=== PATIENT | female | born 1995 | race Caucasian/White ===

== ENCOUNTER 2018-11-03 18:28 | Emergency (ER) | payer OTHER ==
[~2018-11-03] VITALS: Ht 165.1 cm; Wt 114.9 kg
[2018-11-03 18:43] VITALS: BP 111/48
--- NOTE | 2018-11-03 19:56 | NUR ---
PT AMBULATED TO BED 11.
--- NOTE | 2018-11-03 20:05 | NUR ---
23/F PRESENTED TO ED. A/OX4 PERSON PL[address] TIME AND EVENT. WITH C/O INCREASED HEART RATE SINCE 1400 11/03/18. PT REPORTS USING AMY ON PHONE AND NOTING HEART RATE OF 120'S, STATES FEELING "FLUTTERY". CURRENT VITALS STABLE. STATES INTERMITENT SHARP L SIDE CP. NONRADIATING. STATES NAUSEA, HEADACHE. 17 WEEKS , LMP 07/13/18, , ARTUR 04/15/19. DENIES CURRENT DRUG USE. STATES SHE USED [facility] BEFORE . STATES DOES NOT DRINK ENERGY DRINKS AND DRINKS COFFEE ON OCCASION. STATES THAT SHE HAD THIS PROBLEM WHEN SHE WAS YOUNGER. AND BELIEVES SHE HAS ANXIETY BUT IS NOT DIAGNOSED. MED HX ASTHMA. RX ALBUTEROL, VITAMINS. WILL CONTINUE TO MONITOR.
[2018-11-03 22:00] VITALS: BP 113/52
--- NOTE | 2018-11-03 22:00 | NUR ---
Patient discharged with v/s stable. Written and verbal after care instructions given and explained. Patient alert, oriented and verbalized understanding of instructions. Ambulatory with steady gait. All questions addressed prior to discharge. ID band removed. Patient advised to follow up with PMD. Opportunity to ask questions provided and answered.
== END 2018-11-03 22:00 | disposition home or self-care (01) ==
LOC: MED 18:28
DX: O26.892 Other specified pregnancy related conditions, second trimester (principal); O21.8 Other vomiting complicating pregnancy; R00.2 Palpitations; J45.909 Unspecified asthma, uncomplicated; Z3A.17 17 weeks gestation of pregnancy
CPT/HCPCS: 81002; 93005; 99283

== ENCOUNTER 2019-01-14 02:14 | Emergency (ER) | payer OTHER ==
[~2019-01-14] VITALS: Ht 165.1 cm; Wt 122.0 kg
[2019-01-14 02:23] VITALS: BP 125/67
--- NOTE | 2019-01-14 02:26 | NUR ---
23 F C/O BILATERAL EAR PAIN X 3 DAYS. SEEN @ [facility]RGENT [facility]ARE GIVEN RX EAR DROPS. 12/07 EAR PAIN, THROBBING. PT TOOK TYLENOL XL 1 HOUR AGO. PATIENT STATES, " I FEEL LIKE IT STARTS IN MY RIGHT EAR AND THEN MY LEFT EAR FEELS THE PAIN, TOO. IT HURTS MY HEAD; IT FEELS LIKE PRESSURE, AND AFFECTS MY JAW THAT. I KIND OF FEEL DIZZY WHEN I STAND AT TIMES". SLIGHT PAIN NOTED AND FACIAL GRIMACING NOTED WHEN PALPATED THE RIGHT EAR TRAGUS AND RIGHT SIDE OF JAW. DENIES VOMITING/DIARRHEA, BUT HAS NAUSEA. ERMD MADE AWARE. SIDE [id number]. AT BEDSIDE. HX: ASTHMA RX: INHALER, TYLENOL OTC AX: NKA
[2019-01-14] MEDS ORDERED: KETOROLAC 60 MG/2 ML VIAL IM ONE (03:50)
[2019-01-14 04:48] VITALS: BP 125/67
--- NOTE | 2019-01-14 04:48 | NUR ---
Patient discharged with v/s stable. Written and verbal after care instructions given and explained. Patient alert, oriented and verbalized understanding of instructions. Ambulatory with steady gait. All questions addressed prior to discharge. ID band removed. Patient advised to follow up with PMD. Rx of MOTRIN; ACETIC ACID given. Patient educated on indication of medication including possible reaction and side effects. Opportunity to ask questions provided and answered.
== END 2019-01-14 04:48 | disposition home or self-care (01) ==
LOC: MED 02:14
DX: O26.893 Other specified pregnancy related conditions, third trimester (principal); H60.93 Unspecified otitis externa, bilateral; O16.3 Unspecified maternal hypertension, third trimester; O99.513 Diseases of the respiratory system complicating pregnancy, third trimester; J45.909 Unspecified asthma, uncomplicated
CPT/HCPCS: 81002; 96372; 99283; J1885

== ENCOUNTER 2019-04-07 22:11 | Inpatient (IN) | payer OTHER ==
[~2019-04-07] VITALS: Ht 165.1 cm; Wt 127.0 kg
[2019-04-07] MEDS: LACTATED RINGERS 1,000 ML IV SCH (00:57)
[2019-04-07] MEDS ORDERED: LACTATED RINGERS 500 ML IV ONE (23:10)
[2019-04-07] MEDS ORDERED: PROMETHAZINE 25 MG/ML VIAL IVP PRN (23:10)
[2019-04-07] MEDS ORDERED: NALBUPHINE 10 MG/ML AMP IVP PRN (23:10)
[2019-04-08] MEDS ORDERED: AMPICILLIN 2,000 MG in NACL 0.9% MINI-BAG PLUS 100 ML IV SCH ×2
[2019-04-08 00:07] LABS: BASOPHILS # (AUTO) 0.1 K/uL (0.00-0.22); BASOPHILS % (AUTO) 0.4 % (0.0-2.0); EOSINOPHILS # (AUTO) 0.1 K/uL (0-0.4); EOSINOPHILS % (AUTO) 0.5 % (0.0-4.0); HEMATOCRIT 33.1 % (36-48); HEMOGLOBIN 10.7 g/dL (12.0-16.0); LYMPHOCYTES # (AUTO) 1.9 K/uL (2.5-16.5); LYMPHOCYTES % (AUTO) 16.4 % (20.5-51.1); MEAN CORPUSCULAR HEMOGLOBIN 26 pg (27-31); MEAN CORPUSCULAR HGB CONC 32 g/dL (33-37); MEAN CORPUSCULAR VOLUME 81.1 fL (80-94); MONOCYTES # (AUTO) 0.8 K/uL (0.8-1.0); MONOCYTES % (AUTO) 6.8 % (1.7-9.3); NEUTROPHILS # (AUTO) 8.7 K/uL (1.8-7.7); NEUTROPHILS % (AUTO) 75.9 % (42.2-75.2); PLATELET COUNT (AUTO) 276 K/uL (140-450); RED BLOOD CELL COUNT(AUTO) 4.09 MIL/uL (4.20-5.40); WHITE BLOOD COUNT (AUTO) 11.5 K/uL (4.8-10.8)
[2019-04-08 00:11] LABS: APPEARANCE,URINE CLOUDY (CLEAR); BILIRUBIN,URINE NEGATIVE (NEGATIVE); BLOOD, URINE NEGATIVE (NEGATIVE); COLOR,URINE DARK YELLOW (YELLOW); LEUKOCYTE ESTERASE ,URINE NEGATIVE (NEGATIVE); NITRITE, URINE NEGATIVE (NEGATIVE); UGLUCOSE NEGATIVE (NEGATIVE)
[2019-04-08] MEDS ORDERED: AMPICILLIN 2,000 MG VIAL ONE (01:06)
[2019-04-08] MEDS: MISOPROSTOL 25 MCG TAB VG PRN ×3 (01:38→13:13)
[2019-04-08] MEDS ORDERED: PREN-380 PO (01:53)
[2019-04-08] MEDS ORDERED: albuterol inhaler (01:53)
[2019-04-08 02:03] VITALS: BP 115/57
[2019-04-08 03:17] LABS: BARBITURATE, URINE NEG. ng/ml (NEG <=200); BENZODIAZEPINE, URINE NEG. ng/mL (NEG <=200); CANNABINOID, URINE NEG. ng/mL (NEG <=50); COCAINE, URINE NEG. ng/mL (NEG <=300); OPIATE, URINE NEG. ng/mL (NEG <=2000); PHENCYCLIDINE SCREEN,URINE NEG. ng/mL (NEG <=25)
[2019-04-08] MEDS: LACTATED RINGERS 1,000 ML IV SCH ×3 (04:40→19:59)
[2019-04-08] MEDS ORDERED: AMPICILLIN 1,000 MG VIAL ONE ×5 (05:11→20:46)
[2019-04-08] MEDS: AMPICILLIN 1,000 MG in NACL 0.9% MINI-BAG PLUS 50 ML IV SCH ×5 (05:22→20:54)
--- NOTE | 2019-04-08 08:36 | NUR ---
PATIENT HAS BEEN SCREENED AND CATEGORIZED LOW NUTRITION RISK. PATIENT WILL BE SEEN WITHIN 7 DAYS OF ADMISSION. 04/14/19 RAVI LUA MBA,RD
[2019-04-08] MEDS ORDERED: guaiFENesin 20 MG/ML UDC PO PRN (11:00)
[2019-04-08] MEDS: ALBUTEROL 0.083% 2.5 MG/3 ML NEBU INH PRN (12:13)
[2019-04-08] MEDS ORDERED: ALBUTEROL 0.083% 2.5 MG/3 ML NEBU INH SCH (15:00)
[2019-04-08] MEDS ORDERED: EPIDURAL KEYS MC ONE (19:52)
--- NOTE | 2019-04-08 20:50 | NUR ---
2018 BREATH SOUNDS ARE CLEAR. SATS 95%. NO SOB NOTED. NO HHNTX NEEDED
[2019-04-08] MEDS ORDERED: OXYTOCIN 20 UNITS/LR PREMIX 1,000 ML IV ONE (21:39)
[2019-04-09] MEDS: LACTATED RINGERS 1,000 ML IV SCH ×3 (00:10→20:05)
[2019-04-09] MEDS ORDERED: AMPICILLIN 1,000 MG VIAL ONE ×6 (00:45→21:48)
[2019-04-09] MEDS: AMPICILLIN 1,000 MG in NACL 0.9% MINI-BAG PLUS 50 ML IV SCH ×5 (01:00→16:57)
[2019-04-09] MEDS ORDERED: ONDANSETRON 8 MG in NACL 0.9% 50 ML IM/IVP PRN (12:05)
[2019-04-09] MEDS ORDERED: ONDANSETRON 4 MG/2 ML VIAL ONE (12:08)
[2019-04-09] MEDS ORDERED: ROPIVACAINE 0.2%/NS PREMIX 200 ML EPI ONE (19:22)
[2019-04-09] MEDS: ALBUTEROL 0.083% 2.5 MG/3 ML NEBU INH PRN (23:04)
[2019-04-10] MEDS ORDERED: AMPICILLIN 1,000 MG VIAL ONE ×4 (01:06→12:55)
[2019-04-10] MEDS ORDERED: OXYTOCIN 20 UNITS/LR PREMIX 1,000 ML IV ONE (03:33)
[2019-04-10] MEDS ORDERED: ROPIVACAINE 0.2%/NS PREMIX 200 ML EPI ONE ×2 (10:52→17:23)
--- NOTE | 2019-04-10 20:56 | NUR ---
PATIENT IS CURRENTLY IN LABOR AT THIS TIME. PER FAMILY PATIENT IS ALSO VOMITING AND DOES NOT WANT BREATHING TREATMENT. WILL CONTINUE TO MONITOR.
[2019-04-10] MEDS ORDERED: METHYLERGONOVINE 0.2 MG TAB PO ONE (21:54)
[2019-04-10] MEDS ORDERED: MISOPROSTOL 200 MCG TAB ONE (21:57)
[2019-04-10] MEDS ORDERED: METHYLERGONOVINE 0.2 MG/ML AMP ONE (21:58)
[2019-04-10] MEDS ORDERED: MISOPROSTOL 100 MCG TAB VG ONE (22:25)
[2019-04-10 22:49] LABS: HEMATOCRIT 30.6 % (36-48); HEMOGLOBIN 9.8 g/dL (12.0-16.0); MEAN CORPUSCULAR HEMOGLOBIN 26 pg (27-31); MEAN CORPUSCULAR HGB CONC 32 g/dL (33-37); MEAN CORPUSCULAR VOLUME 81.7 fL (80-94); PLATELET COUNT (AUTO) 276 K/uL (140-450); RED BLOOD CELL COUNT(AUTO) 3.74 MIL/uL (4.20-5.40); RED CELL DISTRIBUTION WIDTH 15.7 % (11.6-13.7)
[2019-04-10] MEDS ORDERED: SODIUM BICARBONATE 8.4% PFS 50 MEQ/50 ML SYR IVP ONE (23:02)
[2019-04-10] MEDS ORDERED: LIDOCAINE/EPI MPF 2%1:200000 10 ML VIAL INJ ONE (23:02)
[2019-04-10 23:08] LABS: WHITE BLOOD COUNT (AUTO) 28.8 K/uL (4.8-10.8)
[2019-04-10 23:09] LABS: LYMPHOCYTES % (MANUAL) 1 % (20-46); MONOCYTES % (MANUAL) 6 % (5-12)
[2019-04-10 23:13] LABS: PROTHROMBIN TIME 9.7 secs (10.8-13.4)
[2019-04-10] MEDS ORDERED: ONDANSETRON 4 MG/2 ML VIAL IVP PRN (23:15)
[2019-04-11] MEDS: OXYTOCIN 20 UNITS/LR PREMIX 1,000 ML IV ONE ×2 (00:42→01:00)
[2019-04-11] MEDS ORDERED: IBUPROFEN 600 MG TAB ONE (01:57)
[2019-04-11] MEDS ORDERED: IBUPROFEN 600 MG TAB PO PRN (02:00)
[2019-04-11 06:05] LABS: HEMATOCRIT 27.6 % (36-48); MEAN CORPUSCULAR HEMOGLOBIN 27 pg (27-31); MEAN CORPUSCULAR HGB CONC 33 g/dL (33-37); MEAN CORPUSCULAR VOLUME 81.7 fL (80-94); PLATELET COUNT (AUTO) 209 K/uL (140-450); RED BLOOD CELL COUNT(AUTO) 3.37 MIL/uL (4.20-5.40); RED CELL DISTRIBUTION WIDTH 15.5 % (11.6-13.7)
[2019-04-11 06:52] LABS: WHITE BLOOD COUNT (AUTO) 24.8 K/uL (4.8-10.8)
[2019-04-11 07:00] LABS: LYMPHOCYTES % (MANUAL) 4 % (20-46); MONOCYTES % (MANUAL) 1 % (5-12)
[2019-04-11] MEDS ORDERED: NACL 0.9% 1,000 ML IV SCH (07:45)
[2019-04-11] MEDS ORDERED: GENTAMICIN PER PHARMACY MC PRN (07:50)
[2019-04-11] MEDS ORDERED: GENTAMICIN 120 MG in DEXTROSE 5% 100 ML IV SCH (07:50)
[2019-04-11] MEDS ORDERED: OXYTOCIN 10 UNITS/ML VIAL IM PRN (07:55)
[2019-04-11] MEDS ORDERED: BENZOCAINE/MENTHOL 20%-0.5% 60 GM CAN TP PRN (07:55)
[2019-04-11] MEDS ORDERED: MEASLES, MUMPS, AND RUBELLA 1 VIAL SQVAC PRN (07:55)
[2019-04-11] MEDS ORDERED: IBUPROFEN 800 MG TAB PO PRN (07:55)
[2019-04-11 08:36] LABS: BASOPHILS % (AUTO) 0.7 % (0.0-2.0); HEMATOCRIT 27.2 % (36-48); HEMOGLOBIN 8.9 g/dL (12.0-16.0); LYMPHOCYTES # (AUTO) 1.5 K/uL (2.5-16.5); LYMPHOCYTES % (AUTO) 6.2 % (20.5-51.1); MEAN CORPUSCULAR HEMOGLOBIN 27 pg (27-31); MEAN CORPUSCULAR HGB CONC 33 g/dL (33-37); MEAN CORPUSCULAR VOLUME 81.6 fL (80-94); MONOCYTES # (AUTO) 1.1 K/uL (0.8-1.0); MONOCYTES % (AUTO) 4.7 % (1.7-9.3); NEUTROPHILS # (AUTO) 21.2 K/uL (1.8-7.7); NEUTROPHILS % (AUTO) 88.4 % (42.2-75.2); PLATELET COUNT (AUTO) 202 K/uL (140-450); RED BLOOD CELL COUNT(AUTO) 3.34 MIL/uL (4.20-5.40); RED CELL DISTRIBUTION WIDTH 15.6 % (11.6-13.7)
[2019-04-11 08:37] LABS: BASOPHILS # (AUTO) 0.2 K/uL (0.00-0.22)
[2019-04-11 08:56] LABS: ANION GAP 13.1 (8-16); CARBON DIOXIDE 23.3 mmol/L (21-32); CREATININE 1.4 mg/dL (0.6-1.3); POTASSIUM 4.4 mmol/L (3.5-5.1)
[2019-04-11] MEDS: LACTATED RINGERS 1,000 ML IV SCH ×3 (10:00→18:04)
[2019-04-11] MEDS: GENTAMICIN 140 MG in DEXTROSE 5% 100 ML IV SCH ×2 (10:06→18:04)
[2019-04-11] MEDS: CLINDAMYCIN 900 MG in DEXTROSE 5% 100 ML IV SCH ×2 (13:08→21:23)
[2019-04-11] MEDS: HYDROcodone/APAP 5/325 MG 1 TAB TAB PO PRN ×2 (15:54→22:01)
[2019-04-11] MEDS: BISACODYL 5 MG TABEC PO PRN (22:02)
[2019-04-12] MEDS: LACTATED RINGERS 1,000 ML IV SCH (01:53)
[2019-04-12] MEDS: GENTAMICIN 140 MG in DEXTROSE 5% 100 ML IV SCH ×3 (01:58→17:33)
[2019-04-12] MEDS: CLINDAMYCIN 900 MG in DEXTROSE 5% 100 ML IV SCH ×3 (05:08→21:07)
[2019-04-12] MEDS: HYDROcodone/APAP 5/325 MG 1 TAB TAB PO PRN ×2 (08:32→17:47)
[2019-04-12 10:51] LABS: BASOPHILS % (AUTO) 0.2 % (0.0-2.0); EOSINOPHILS # (AUTO) 0.1 K/uL (0-0.4); EOSINOPHILS % (AUTO) 0.9 % (0.0-4.0); HEMATOCRIT 22.8 % (36-48); HEMOGLOBIN 7.5 g/dL (12.0-16.0); LYMPHOCYTES # (AUTO) 1.4 K/uL (2.5-16.5); MEAN CORPUSCULAR HEMOGLOBIN 27 pg (27-31); MEAN CORPUSCULAR HGB CONC 33 g/dL (33-37); MONOCYTES # (AUTO) 0.5 K/uL (0.8-1.0); MONOCYTES % (AUTO) 4.4 % (1.7-9.3); NEUTROPHILS # (AUTO) 9.7 K/uL (1.8-7.7); NEUTROPHILS % (AUTO) 82.5 % (42.2-75.2); PLATELET COUNT (AUTO) 210 K/uL (140-450); RED BLOOD CELL COUNT(AUTO) 2.78 MIL/uL (4.20-5.40); RED CELL DISTRIBUTION WIDTH 15.8 % (11.6-13.7); WHITE BLOOD COUNT (AUTO) 11.8 K/uL (4.8-10.8)
[2019-04-12 11:05] LABS: ANION GAP 9.8 (8-16); CARBON DIOXIDE 26.9 mmol/L (21-32); CREATININE 0.8 mg/dL (0.6-1.3); POTASSIUM 3.7 mmol/L (3.5-5.1)
[2019-04-12] MEDS: IBUPROFEN 600 MG TAB PO PRN (17:47)
[2019-04-13] MEDS: BISACODYL 5 MG TABEC PO PRN (01:40)
[2019-04-13] MEDS: LACTATED RINGERS 1,000 ML IV SCH (01:46)
[2019-04-13] MEDS: GENTAMICIN 140 MG in DEXTROSE 5% 100 ML IV SCH (02:05)
[2019-04-13] MEDS: HYDROcodone/APAP 5/325 MG 1 TAB TAB PO PRN (02:10)
[2019-04-13] MEDS: CLINDAMYCIN 900 MG in DEXTROSE 5% 100 ML IV SCH (05:07)
[2019-04-13] MEDS: IBUPROFEN 600 MG TAB PO PRN (05:24)
[2019-04-13] MEDS ORDERED: IBUP-2213 PO (08:09)
[2019-04-13] MEDS ORDERED: DOCU-299 PO (08:09)
[2019-04-13 08:38] LABS: BASOPHILS % (AUTO) 0.3 % (0.0-2.0); EOSINOPHILS # (AUTO) 0.2 K/uL (0-0.4); EOSINOPHILS % (AUTO) 2.5 % (0.0-4.0); HEMATOCRIT 21.3 % (36-48); LYMPHOCYTES # (AUTO) 1.7 K/uL (2.5-16.5); LYMPHOCYTES % (AUTO) 21.6 % (20.5-51.1); MEAN CORPUSCULAR HEMOGLOBIN 27 pg (27-31); MEAN CORPUSCULAR HGB CONC 33 g/dL (33-37); MEAN CORPUSCULAR VOLUME 82.3 fL (80-94); MONOCYTES # (AUTO) 0.4 K/uL (0.8-1.0); MONOCYTES % (AUTO) 5.1 % (1.7-9.3); NEUTROPHILS # (AUTO) 5.5 K/uL (1.8-7.7); NEUTROPHILS % (AUTO) 70.5 % (42.2-75.2); PLATELET COUNT (AUTO) 209 K/uL (140-450); RED BLOOD CELL COUNT(AUTO) 2.58 MIL/uL (4.20-5.40); RED CELL DISTRIBUTION WIDTH 15.4 % (11.6-13.7); WHITE BLOOD COUNT (AUTO) 7.8 K/uL (4.8-10.8)
== END 2019-04-13 11:55 | disposition home or self-care (01) | DRG 542 ==
LOC: MFCC 22:11 → MLD 23:16 → MFCC 04-11 01:32
PROVIDERS: ADMIT Obstetrics & Gynecology; ATTEND Obstetrics & Gynecology
PROC: 0UQC7ZZ Repair Cervix, Via Natural or Artificial Opening (ICD-10-PCS; 2019-04-10)
PROC: 3E0P7VZ Introduction of Hormone into Female Reproductive, Via Natural or Artificial Opening (ICD-10-PCS; 2019-04-10)
PROC: 0HQ9XZZ Repair Perineum Skin, External Approach (ICD-10-PCS; 2019-04-10)
PROC: 30233N1 Transfusion of Nonautologous Red Blood Cells into Peripheral Vein, Percutaneous Approach (ICD-10-PCS; 2019-04-10)
PROC: 00HU33Z Insertion of Infusion Device into Spinal Canal, Percutaneous Approach (ICD-10-PCS; 2019-04-10)
PROC: 3E0R3BZ Introduction of Anesthetic Agent into Spinal Canal, Percutaneous Approach (ICD-10-PCS; 2019-04-10)
PROC: 10E0XZZ Delivery of Products of Conception, External Approach (ICD-10-PCS; principal; 2019-04-10 23:00)
PROC: 3E0234Z Introduction of Serum, Toxoid and Vaccine into Muscle, Percutaneous Approach (ICD-10-PCS; 2019-04-13)
DX: O99.214 Obesity complicating childbirth (principal); E66.01 Morbid (severe) obesity due to excess calories; O99.89 Other specified diseases and conditions complicating pregnancy, childbirth and the puerperium; E86.0 Dehydration; Z37.0 Single live birth; O36.8930 Maternal care for other specified fetal problems, third trimester, not applicable or unspecified; Z3A.39 39 weeks gestation of pregnancy; O99.824 Streptococcus B carrier state complicating childbirth; O71.3 Obstetric laceration of cervix; O99.02 Anemia complicating childbirth; D64.9 Anemia, unspecified; D72.829 Elevated white blood cell count, unspecified; O69.81X0 Labor and delivery complicated by cord around neck, without compression, not applicable or unspecified; Z23 Encounter for immunization; O70.0 First degree perineal laceration during delivery
CPT/HCPCS: 36415; 51702; 59200; 76815; 80048; 80170; 80305; 81003; 85025; 85384; 85610; 85730; 86592; 86886; 86900; 86901; 86920; 90715; 93005; 94640; J0290; J1580; J2001; J2210; J2300; J2405; J2550; J2590; J2795; J3490; J7030; J7060; J7120; J7613; P9016; Q0092